=== PATIENT | female | born 1970 | race Caucasian/White ===

== ENCOUNTER 2016-10-13 13:15 | Emergency (ER) | payer OTHER | END 2016-10-13 16:23 | disposition home or self-care (01) | LOC: FER 13:15 | DX: S61.531A Puncture wound without foreign body of right wrist, initial encounter (principal); F41.9 Anxiety disorder, unspecified; F32.9 Major depressive disorder, single episode, unspecified; Z79.899 Other long term (current) drug therapy; Z88.0 Allergy status to penicillin; Z88.5 Allergy status to narcotic agent; Z88.6 Allergy status to analgesic agent; W19.XXXA Unspecified fall, initial encounter; W45.0XXA Nail entering through skin, initial encounter; Y92.009 Unspecified place in unspecified non-institutional (private) residence as the place of occurrence of the external cause | CPT/HCPCS: 73110; 99283 ==

== ENCOUNTER 2021-06-06 12:16 | Emergency (ER) | payer OTHER ==
[2021-06-06 14:10] LABS: BASOPHIL 0.3 % (0-2); EOSINOPHIL 0.8 % (0-5); HCT 41.6 % (37.0-47.0); HGB 13.3 g/dl (12.5-16.0); LYMPHOCYTE 10.7 % (15-48); MCH 28.7 pg (25.0-31.0); MCV 89.7 fL (78.0-100.0); MONOCYTE 2.1 % (0-12); MPV 9.6 fL (6.0-9.5); NEUTROPHIL 85.6 % (41-80); NRBC 0; PLT 355 K/uL (150-400); RBC 4.64 M/uL (4.20-5.40); WBC 10.5 K/uL (4.0-10.5)
[2021-06-06 14:30] LABS: ALBUMIN 3.7 g/dL (3.4-5.0); BILIRUBIN - TOTAL 0.2 mg/dL (0.2-1.0); BUN/CREAT RATIO (CALC) 13.7 RATIO; CREATININE 1.02 mg/dL (0.51-0.95); GLOBULIN (CALCULATION) 3.7 g/dL; POTASSIUM 4.4 mmol/L (3.5-5.1); TOTAL PROTEIN 7.4 g/dL (6.4-8.2)
[2021-06-06] MEDS ORDERED: ATARAX25 MG PO (15:04)
== END 2021-06-06 15:25 | disposition home or self-care (01) ==
LOC: FER 12:16
PROVIDERS: Internal Medicine
DX: R21 Rash and other nonspecific skin eruption (principal); I10 Essential (primary) hypertension; Z88.0 Allergy status to penicillin; Z88.6 Allergy status to analgesic agent
CPT/HCPCS: 36415; 80053; 85025; J2930